=== PATIENT | male | born 1945 | race African-American/Black ===

== ENCOUNTER 2023-06-17 13:30 | Outpatient (RCR) | payer MEDICARE, MEDICAID, SELFPAY ==
[2023-02-18 11:23] VITALS: PULSE 88
== END 2023-06-17 23:59 | disposition home or self-care (01) ==
LOC: ANHCPREHAB 13:30
PROVIDERS: Visit Provider Internal Medicine Pulmonary Disease
DX: J44.9 Chronic obstructive pulmonary disease, unspecified (principal)
CPT/HCPCS: 94625

== ENCOUNTER 2023-06-21 14:30 | Outpatient (RCR) | payer MEDICARE, MEDICAID, SELFPAY ==
[2023-06-19 00:02] VITALS: PULSE 88
== END 2023-08-02 08:56 | disposition home or self-care (01) ==
LOC: ANHCPREHAB 14:30
PROVIDERS: Visit Provider Internal Medicine Pulmonary Disease
DX: J44.9 Chronic obstructive pulmonary disease, unspecified (principal)
CPT/HCPCS: 94625

== ENCOUNTER 2023-06-23 11:04 | Outpatient (CLI) | payer MEDICARE, MEDICAID, SELFPAY ==
--- NOTE | 2023-06-24 08:56 | WPDSIXMINUTE ---
Six Minute Walk Procedure Procedure Performed Pulmonary Stress Test (6 min walk) Six Minute Walk Six Minute Walk: This is a post-pulmonary rehab 6 minute walk testing. The baseline pre-walk oxyhemoglobin saturation while the patient was on supplemental oxygen 2 liters/minute was 97%. The patient walked 305 m with no stops during testing. During the walk, it is the oxyhemoglobin saturation remained mostly in the range of 90%-98% except during the last minute when it decreased down to 87%. The perceived dyspnea on the Preeti scale at baseline was 2 and increased to 3 at the end of testing. Impression: Borderline oxyhemoglobin desaturation during the last minute of walking on current oxygen flow.
== END 2023-06-23 11:05 | disposition home or self-care (01) ==
LOC: ANHPFT 11:05
PROVIDERS: Visit Provider Internal Medicine Pulmonary Disease
DX: J44.9 Chronic obstructive pulmonary disease, unspecified (principal)
CPT/HCPCS: 94618